=== PATIENT | female | born 1980 | race Caucasian/White ===

== ENCOUNTER 2016-09-15 05:45 | Emergency (ER) | payer MEDICARE ==
[~2016-09-15] VITALS: Ht 167.6 cm; Wt 127.3 kg
[~2016-09-15 05:45] MED LIST: BUSP10 PO; LORA-303 PO; VENL100T PO
[2016-09-15 05:48] VITALS: BP 145/98; PULSE 99; RESP 18; O2SAT 96
[2016-09-15] MEDS ORDERED: Methylpred Sodium Succ Inj 1,000 MG in Dextrose 5% 250 ML IV ONE (07:00)
--- NOTE | 2016-09-15 10:21 | DRSVH ---
PROCEDURE: MRI CERVICAL SPINE WITH AND WITHOUT CONTRAST ([id number]) INDICATIONS: Numbness, h.o MS TECHNIQUE: Noncontrast sagittal T1 spin echo and T2 fast spin echo, sagittal STIR, sagittal PD fast spin echo, f oraminal oblique sagittal T2 fast spin echo, axial gradient echo or T2 fast spin echo through the cer vical spine. After the administration of contrast, sagittal and axial T1 spin echo with fat saturati on through the cervical spine. COMPARISON: None. FINDINGS: Image quality: Excellent. Alignment and curvature: There is mild kyphosis centered at C4 secondary to mild degenerative change including intervertebral disc space narrowing, endplate sclerosis, and mild anterior wedging. Marrow: Marrow demonstrates normal overall signal. Spinal cord: Visualized spinal cord is normal in size. A focal white matter lesion is present at the C2-3 disc interspace which measures 0.7 cm (AP) by 1.0 cm (CC) by 0.5 cm (LAT). No suspicious intram edullary enhancement. No cerebellar tonsillar herniation. Paraspinous soft tissues: No paravertebral masses or suspicious enhancement. C2-C3: Mild disc desiccation and height loss. Broad-based disc bulge. Mild effacement of the anterior CSF space. Mild canal stenosis. No neural foraminal stenosis. C3-C4: Mild disc desiccation and height loss. Broad-based disc bulge. Mild effacement of the anterior CSF space and mild flattening of the anterior aspect of the cord. No cord signal abnormality seconda ry to cord flattening. Mild canal stenosis. No foraminal stenosis. C4-C5: Mild disc desiccation and height loss. Broad-based disc bulge. Effacement of the anterior CSF space. Mild canal stenosis. Mild left neuroforaminal stenosis. No right neuroforaminal narrowing. C5-C6: Mild disc desiccation and height loss. Broad-based disc bulge. No canal stenosis. No foraminal stenosis. C6-C7: Mild disc desiccation and height loss. Broad-based disc bulge. No canal stenosis. No foraminal stenosis. C7-T1: Normal appearance. IMPRESSION: 1. Disc desiccation and height loss throughout the lumbar spine, mild in degree. 2. Mild canal stenosis at C2-3 C3-4, and C4-5 with mild flattening of the anterior aspect of the cord at C3-4. No associated cord signal abnormality. 3. Focal white matter lesion within the cord at C2-3 suspicious for a demyelinating plaque. There is no associated enhancement to suggest active demyelination. No other intramedullary lesions or enhance ment. Dictated by: Angie Mar M.D. on 09/15/2016 at 10:06 Approved by: Angie Mar M.D. on 09/15/2016 at 10:20
--- NOTE | 2016-09-15 10:42 | DRSVH ---
PROCEDURE: MRI MULTIPLE SCLEROSIS BRAIN WITH AND WITHOUT CONTRAST ([id number]) INDICATIONS: Numbness, h.o MS TECHNIQUE: Noncontrast sagittal and axial FLAIR, axial and coronal T2 fast spin echo, axial VIBE, axial gradient echo, axial diffusion and ADC through the brain. After the administration of contrast, axial and co vaishali VIBE with fat saturation through the brain. COMPARISON: None. FINDINGS: Image quality: Excellent. CSF spaces: Ventricles are normal in size and shape. Basal cisterns are patent. No extra-axial flu id collections. Brain: No intracranial bleeds or mass effects. Morel-white matter interface appears intact. A 6 mm d iameter white matter lesion is present adjacent to the posterior horn of the left lateral ventricle ( series 4, image 16). There is no associated enhancement. No other white matter lesions. No abnormal i ntracranial enhancement. Diffusion weighted images show no acute ischemic insults. Brainstem appear s normal. Normal intravascular flow voids are present. Skull and face: Calvarial marrow signal is normal. Orbits appear normal. Sinuses: Sinuses and mastoids are clear. IMPRESSION: 1. Solitary left periventricular white matter lesion suspicious for a demyelinating plaque. There is no associated enhancement to suggest active demyelination. 2. No other white matter lesions or other acute intracranial findings. Dictated by: Angie Mar M.D. on 09/15/2016 at 10:34 Approved by: Angie Mar M.D. on 09/15/2016 at 10:41
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
[2016-09-15] MEDS ORDERED: PRE20 PO (11:28)
== END 2016-09-15 12:03 | disposition home or self-care (01) ==
LOC: SED 05:45
DX: G37.9 Demyelinating disease of central nervous system, unspecified (principal); F17.200 Nicotine dependence, unspecified, uncomplicated; Z88.5 Allergy status to narcotic agent; Z88.8 Allergy status to other drugs, medicaments and biological substances; Z91.013 Allergy to seafood; Z91.040 Latex allergy status
CPT/HCPCS: 70553; 72156; 96365; 99284; A9585; J2930

== ENCOUNTER 2016-09-17 20:25 | Inpatient (IN) | payer MEDICARE ==
[~2016-09-17] VITALS: Ht 167.6 cm; Wt 124.4 kg
[~2016-09-17 20:25] MED LIST changes: +PRE20 PO
[2016-09-17 20:36] VITALS: BP 111/75; PULSE 81; RESP 20; O2SAT 95
[2016-09-17] MEDS ORDERED: Polyethylene Glycol (PEG) 17 Gm Powder PO PRN (21:15)
[2016-09-17] MEDS ORDERED: MethylprednisoLONE Sodium Succinate 62.5 mg/mL 2 mL Inj IVPUSH SCH ×2 (21:15→21:25)
[2016-09-17] MEDS ORDERED: Ondansetron 2 mg/mL 2 mL Inj IVPUSH PRN (21:15)
[2016-09-17] MEDS ORDERED: Alum-Mag Hydrox-Simeth 30 mL Suspension PO PRN ×2 (21:15→21:25)
[2016-09-17] MEDS ORDERED: METHYLPREDNISOLONE IV ONE ×2 (21:25)
[2016-09-17] MEDS ORDERED: SODIUM CHLORIDE IV ONE ×2 (21:25)
[2016-09-17 21:38] LABS: Mean Corpuscular Hemoglobin 29.9 pg (27.0-35.0); Mean Corpuscular Volume 88.7 fL (81-100)
--- NOTE | 2016-09-17 21:58 | PCM.HPMED ---
Subjective Date of Service Sep 17, 2016 Primary Provider: Admitting Physician: Salazar Sanchez MD Primary Care Physician: Bill Leach MD Attending Physician: Salazar Sanchez MD Chief Complaint: weakness, numbness History of Present Illness: 36yo lady with hx of MS. 3 day hx of progressively worsening LE weakness, upper and lower extremity tingling. having difficulty walking today. sent by outside physician to hosp direct admit for iv steroids. no fevers chills. denies recent illness. no chest pain, dypsnea, difficulty breathing. dx'd with MS 04/2016. had R sided symptoms which resolved. has not had to take steroids before. has not been on any immunomodulating medications. awaiting neurology outpt. came to er earlier this week when the symptoms first started and had mri brain, spine which showed a new spinal lesion Review of Systems: Positive Review of Symptoms mentioned and elaborated on in HPI. Head: Denies H/A, trauma, loss of consciousness. Eyes: Denies visual loss, diplopia. Ears: Denies: deafness, tinnitis, discharge, pain Nose: Denies discharge, obstruction, epistaxis Mouth: Denies sores, gingival bleeding, jaw pain Neck: Denies stiffness, issues swallowing. Respiratory: Denies dyspnea, cough, sputum. Cardiovascular:Denies CP, palpitations, orthopnea, peripheral edema Gastrointestinal: Denies melena, abd pain, n/v/d Genitourinary: Denies dysuria, discharge. Skin: Denies: lesions, rashes, pruritus. Musculoskeletal: Denies joint pain, swelling or increased warmth. Neuro: see hpi Psyc: Currently denies feelings of anxiety, depression. Allergies Coded Allergies: Adhesives (Verified Allergy, Severe, reddness, bruising and whelting, ) Shellfish (Verified Allergy, Severe, giant hives, 09/15/16) with shrimp latex (Verified Allergy, Severe, 09/15/16) gluten (Verified Allergy, Intermediate, Rash, joint pain, higher inflammation, 09/17/16) codeine (Verified Allergy, Unknown, rash, 09/15/16) Home Medications see emr PMH see hpi Surgical History L eye, L elbow, gallbladder Family History cousin with ms Social History Hx Alcohol Use: Yes (rare) Hx Substance Use: Yes (thc) Smoking Status: Current Every Day Smoker Exam Vital Signs Vital Sign - Last Date Time Temp Pulse Resp B/P Pulse Ox O2 Delivery O2 Flow Rate FiO2 09/17/16 20:36 36.8 81 20 111/75 95 Room Air Exam General: No acute distress. Awake, alert. Head: Normocephalic, atraumatic. Eyes: White sclera. Conjunctiva non-injected. Mouth & Throat: No Bleeding. No erythema, lesions, exudates visualized. Neck: No tender adenopathy. Trachea midline. Respiratory: Clear to auscultation bilaterally. Symmetric chest expansion. Regular work of breathing without use of accessory muscles. Cardiovascular: S1, S2. Regular rate and rhythm without murmurs, rubs or gallops. Pulses 2+ equal bilaterally. Abdomen: Normal bowel sounds x4 quadrants. Soft, non-tender, non-distended. Extremities: Intact. no joint effusions. no lower extremity tenderness, swelling , erythema or increased warmth. Skin: Intact, no lesions, no rash. Neurologic: Awake, alert, oriented x3. upper and le reports dec sensation to light touch. 4/5 strength b/l Upper and Lower extrem. otherwise no focal deficits. Psychiatric: Appropriate mood and affect. Cooperative. Lab and Diagnostics Result Diagram: 09/17/160 X-Rays, CTs and MRIs Patient Name: PAUL PENG MR#: [id number] Location: [facility] [place] Ordering Phys: Cecilio Caceres DO Date of Service: 09/15/16 0656 PROCEDURE: MRI CERVICAL SPINE WITH AND WITHOUT CONTRAST ([id number]) INDICATIONS: Numbness, h.o MS TECHNIQUE: Noncontrast sagittal T1 spin echo and T2 fast spin echo, sagittal STIR, sagittal PD fast spin echo, foraminal oblique sagittal T2 fast spin echo, axial gradient echo or T2 fast spin echo through the cervical spine. After the administration of contrast, sagittal and axial T1 spin echo with fat saturation through the cervical spine. COMPARISON: None. FINDINGS: Image quality: Excellent. Alignment and curvature: There is mild kyphosis centered at C4 secondary to mild degenerative change including intervertebral disc space narrowing, endplate sclerosis, and mild anterior wedging. Marrow: Marrow demonstrates normal overall signal. Spinal cord: Visualized spinal cord is normal in size. A focal white matter lesion is present at the C2-3 disc interspace which measures 0.7 cm (AP) by 1.0 cm (CC) by 0.5 cm (LAT). No suspicious intramedullary enhancement. No cerebellar tonsillar herniation. Paraspinous soft tissues: No paravertebral masses or suspicious enhancement. C2-C3: Mild disc desiccation and height loss. Broad-based disc bulge. Mild effacement of the anterior CSF space. Mild canal stenosis. No neural foraminal stenosis. C3-C4: Mild disc desiccation and height loss. Broad-based disc bulge. Mild effacement of the anterior CSF space and mild flattening of the anterior aspect of the cord. No cord signal abnormality secondary to cord flattening. Mild canal stenosis. No foraminal stenosis. C4-C5: Mild disc desiccation and height loss. Broad-based disc bulge. Effacement of the anterior CSF space. Mild canal stenosis. Mild left neuroforaminal stenosis. No right neuroforaminal narrowing. C5-C6: Mild disc desiccation and height loss. Broad-based disc bulge. No canal stenosis. No foraminal stenosis. C6-C7: Mild disc desiccation and height loss. Broad-based disc bulge. No canal stenosis. No foraminal stenosis. C7-T1: Normal appearance. IMPRESSION: 1. Disc desiccation and height loss throughout the lumbar spine, mild in degree. 2. Mild canal stenosis at C2-3 C3-4, and C4-5 with mild flattening of the anterior aspect of the cord at C3-4. No associated cord signal abnormality. 3. Focal white matter lesion within the cord at C2-3 suspicious for a demyelinating plaque. There is no associated enhancement to suggest active demyelination. No other intramedullary lesions or enhancement. Dictated by: Angie Mar M.D. on 09/15/2016 at 10:06 Approved by: Angie Mar M.D. on 09/15/2016 at 10:20 Patient Name: PAUL PENG MR#: [id number] Location: [facility] [place] Ordering Phys: Cecilio Caceres DO Date of Service: 09/15/16 0656 PROCEDURE: MRI MULTIPLE SCLEROSIS BRAIN WITH AND WITHOUT CONTRAST ([id number]) INDICATIONS: Numbness, h.o MS TECHNIQUE: Noncontrast sagittal and axial FLAIR, axial and coronal T2 fast spin echo, axial VIBE, axial gradient echo, axial diffusion and ADC through the brain. After the administration of contrast, axial and coronal VIBE with fat saturation through the brain. COMPARISON: None. FINDINGS: Image quality: Excellent. CSF spaces: Ventricles are normal in size and shape. Basal cisterns are patent. No extra-axial fluid collections. Brain: No intracranial bleeds or mass effects. Morel-white matter interface appears intact. A 6 mm diameter white matter lesion is present adjacent to the posterior horn of the left lateral ventricle (series 4, image 16). There is no associated enhancement. No other white matter lesions. No abnormal intracranial enhancement. Diffusion weighted images show no acute ischemic insults. Brainstem appears normal. Normal intravascular flow voids are present. Skull and face: Calvarial marrow signal is normal. Orbits appear normal. Sinuses: Sinuses and mastoids are clear. IMPRESSION: 1. Solitary left periventricular white matter lesion suspicious for a demyelinating plaque. There is no associated enhancement to suggest active demyelination. 2. No other white matter lesions or other acute intracranial findings. Dictated by: Angie Mar M.D. on 09/15/2016 at 10:34 Approved by: Angie Mar M.D. on 09/15/2016 at 10:41 Assessment & Plan -- acute ms exacerbation trial of iv steroids, work with physical therapy if able. if no improvement neurology evaluation. had recent mri as mentioned above. further w/u, rx as clinically indicated -- f/e/n:po diet -- dvt prophylaxis: lovenox Dipso: Admit to inpt tele with expected length of stay > 2 midnights. Salazar Sanchez MD Sep 17, 2016 21:58
[2016-09-18 02:02] VITALS: BP 108/70; PULSE 85; RESP 20; O2SAT 95
[2016-09-18] MEDS ORDERED: IBUP400T22 PO (02:32)
--- NOTE | 2016-09-18 02:44 | NUR ---
Admit pt arrived to [facility] [place] room 1020 at 2030. A&Ox3, BORREGO. pt was able to walk from the wheelchair to the bed without assistance. walks slowly but steadily. pt denies pain but states she has numbness and tingling from her chest down to her toes. admit and med rec complete. she says the only home meds she takes are the occasional ibuprofen for pain and medical marijuana which she uses daily. pt received 1gm of solumedrol IV. pt oriented to room, call light and bed controls. care continues.
[2016-09-18 05:56] LABS: Mean Corpuscular Hemoglobin 30.1 pg (27.0-35.0); Mean Corpuscular Volume 90.2 fL (81-100)
[2016-09-18 06:14] LABS: Magnesium 2.2 mg/dL (1.6-2.6)
[2016-09-18 06:20] VITALS: PULSE 75
[2016-09-18 06:23] VITALS: BP 96/59; PULSE 63; RESP 20; O2SAT 96
[2016-09-18 08:00] VITALS: PULSE 71
[2016-09-18] MEDS ORDERED: Pantoprazole 40 mg ER24 Tablet PO SCH (09:00)
[2016-09-18 10:35] VITALS: BP 134/74; PULSE 89; RESP 18; O2SAT 97
--- NOTE | 2016-09-18 10:37 | PCM.PNMED ---
Subjective Date of Service Sep 18, 2016 Subjective patient felt similar, still has tingling and numbness below her chest level, denied motor weakness but having trouble with coordination movement. stated that at [facility] sent her to hospital, tolerated solu-medrol iv 500mg well last night, denied epigastric pain, nausea, vomiting, denied painful eye movement, dysuria Exam Vital Signs Vital Sign - Last Date Time Temp Pulse Resp B/P Pulse Ox O2 Delivery O2 Flow Rate FiO2 09/18/16 06:23 36.8 63 20 96/59 96 Room Air Intake and Output 09/17/16 09/17/16 09/18/16 Cumulative From/Thru 15:00 23:00 07:00 09/17/16 20:39 - 09/18/16 06:33 Intake Total 100 ml 100 ml Output Total 150 ml 150 ml Balance -50 ml -50 ml Intake Oral 100 ml 100 ml Output Urine Total 150 ml 150 ml Exam NAD, comfortably laying down on the bed no JVD, MMM, no LAD RRR, nl s1, s2 no mrg CTAB, no w,c S,ND,NT,normoactive BS+ warm, no edema, pulses 2/2 sensory intact to dull throughout neuro: CN2-12 intact grossly IVs and Medications Medications Reviewed: Medications were reviewed in detail Lab and Diagnostics Result Diagram: 09/18/[id number] X-Rays, CTs and MRIs Patient Name: PAUL PENG MR#: [id number] Location: [facility] [place] Ordering Phys: Cecilio Caceres DO Date of Service: 09/15/16 0656 PROCEDURE: MRI CERVICAL SPINE WITH AND WITHOUT CONTRAST ([id number]) INDICATIONS: Numbness, h.o MS TECHNIQUE: Noncontrast sagittal T1 spin echo and T2 fast spin echo, sagittal STIR, sagittal PD fast spin echo, foraminal oblique sagittal T2 fast spin echo, axial gradient echo or T2 fast spin echo through the cervical spine. After the administration of contrast, sagittal and axial T1 spin echo with fat saturation through the cervical spine. COMPARISON: None. FINDINGS: Image quality: Excellent. Alignment and curvature: There is mild kyphosis centered at C4 secondary to mild degenerative change including intervertebral disc space narrowing, endplate sclerosis, and mild anterior wedging. Marrow: Marrow demonstrates normal overall signal. Spinal cord: Visualized spinal cord is normal in size. A focal white matter lesion is present at the C2-3 disc interspace which measures 0.7 cm (AP) by 1.0 cm (CC) by 0.5 cm (LAT). No suspicious intramedullary enhancement. No cerebellar tonsillar herniation. Paraspinous soft tissues: No paravertebral masses or suspicious enhancement. C2-C3: Mild disc desiccation and height loss. Broad-based disc bulge. Mild effacement of the anterior CSF space. Mild canal stenosis. No neural foraminal stenosis. C3-C4: Mild disc desiccation and height loss. Broad-based disc bulge. Mild effacement of the anterior CSF space and mild flattening of the anterior aspect of the cord. No cord signal abnormality secondary to cord flattening. Mild canal stenosis. No foraminal stenosis. C4-C5: Mild disc desiccation and height loss. Broad-based disc bulge. Effacement of the anterior CSF space. Mild canal stenosis. Mild left neuroforaminal stenosis. No right neuroforaminal narrowing. C5-C6: Mild disc desiccation and height loss. Broad-based disc bulge. No canal stenosis. No foraminal stenosis. C6-C7: Mild disc desiccation and height loss. Broad-based disc bulge. No canal stenosis. No foraminal stenosis. C7-T1: Normal appearance. IMPRESSION: 1. Disc desiccation and height loss throughout the lumbar spine, mild in degree. 2. Mild canal stenosis at C2-3 C3-4, and C4-5 with mild flattening of the anterior aspect of the cord at C3-4. No associated cord signal abnormality. 3. Focal white matter lesion within the cord at C2-3 suspicious for a demyelinating plaque. There is no associated enhancement to suggest active demyelination. No other intramedullary lesions or enhancement. Dictated by: Angie Mar M.D. on 09/15/2016 at 10:06 Approved by: Angie Mar M.D. on 09/15/2016 at 10:20 Patient Name: PAUL PENG MR#: [id number] Location: [facility] [place] Ordering Phys: Cecilio Caceres DO Date of Service: 09/15/16 0656 PROCEDURE: MRI MULTIPLE SCLEROSIS BRAIN WITH AND WITHOUT CONTRAST ([id number]) INDICATIONS: Numbness, h.o MS TECHNIQUE: Noncontrast sagittal and axial FLAIR, axial and coronal T2 fast spin echo, axial VIBE, axial gradient echo, axial diffusion and ADC through the brain. After the administration of contrast, axial and coronal VIBE with fat saturation through the brain. COMPARISON: None. FINDINGS: Image quality: Excellent. CSF spaces: Ventricles are normal in size and shape. Basal cisterns are patent. No extra-axial fluid collections. Brain: No intracranial bleeds or mass effects. Morel-white matter interface appears intact. A 6 mm diameter white matter lesion is present adjacent to the posterior horn of the left lateral ventricle (series 4, image 16). There is no associated enhancement. No other white matter lesions. No abnormal intracranial enhancement. Diffusion weighted images show no acute ischemic insults. Brainstem appears normal. Normal intravascular flow voids are present. Skull and face: Calvarial marrow signal is normal. Orbits appear normal. Sinuses: Sinuses and mastoids are clear. IMPRESSION: 1. Solitary left periventricular white matter lesion suspicious for a demyelinating plaque. There is no associated enhancement to suggest active demyelination. 2. No other white matter lesions or other acute intracranial findings. Dictated by: Angie Mar M.D. on 09/15/2016 at 10:34 Approved by: Angie Mar M.D. on 09/15/2016 at 10:41 Assessment & Plan 36-year-old female no past medical history, presumed diagnosis with MS in last April but didn't meet the criteria for MS initially presented to ED with whole body tingling and numbness, MRI findings suggestive of MS, no acute changes, seen by new Neurologist at [facility], sent to hospital for steroid iv tx. acute, active whole body tingling and numbness, POA, presumed MS flare, no motor weakness but subtle problems with ambulation, coordinating movement per pt, MRI 4/4showed Solitary left periventricular white matter lesion suspicious for a demyelinating plaque. no acute signs of active demyelination. -continue trial of iv steroids, 1g q24h for 3-5days, monitor symptom improvement , work with physical therapy if able. -Outpatient follow up with upon d/c dvt ppx: LMWH diet: regular dispo: likely 3-5more days VTE Mechanical Devices: Intermittant Pneumatic CD Time spent 35min Aissatou Kidd MD Sep 18, 2016 10:23
[2016-09-18] MEDS ORDERED: DEXTROSE 5% IV SCH (11:05)
[2016-09-18] MEDS ORDERED: METHYLPRED SODIUM SUCC IV SCH (11:05)
--- NOTE | 2016-09-18 13:10 | NUR ---
Social Work: Initial Assessment Data & Assessment: See Initial Assessment. EMR reviewed. Hospital Cleaner met with patient and patient's family to complete initial assessment, SW role reviewed, and discharge planning discussed. Patient JATIN is her Abdifatah Izquierdo [phone]. Patient does not have Advance Directive/DPOA and declined information. Patient confirmed that her PCP is Dr. Bill Leach. Patient has Medicare insurance. Patient has no LTC or VA benefits. Patient does not have a re-admit score. Patient lives at home with family in a 2 story home with three steps to enter and twelve steps on the inside. Patient reported that everything she needs is on the first level and she does not have to go upstairs in her home. Patient is independent at baseline. Patient has no HH or SNF history and no DME.Pt's family to provide transport home at discharge. SW provided phone number and plan on white board in room. SW will continue to follow. Plan: Anticipated discharge home via POV when medically ready. No discharge needs identified at this time. SW to continue to follow if any needs arise. Armando Nava LMSW, LUANN Addendum: 09/18/16 at 1320 by ARMANDO CHENG Amended: Links added.
[2016-09-18 14:47] VITALS: BP 149/78; PULSE 86; RESP 16; O2SAT 95
--- NOTE | 2016-09-18 15:09 | NUR ---
Behavior / Emotions RESEARCH CONSULTANT told me pt wanted to go outside and stated she was told it was okay. RESEARCH CONSULTANT informed pt this was not permitted while she is here as an inpatient. I spoke with pt and informed her that we cannot allow her to leave the [facility] unit, and that she cannot go outside to smoke. Offered to ask physician for an order for a nicotine patch. Pt became upset and tearful and told me to leave her alone. I apologized for the situation, but again firmly advised pt that she cannot go outside. Doing so would mean she would discharge as AMA. Spouse was at the bedside during this conversation. Care continues.
--- NOTE | 2016-09-18 16:24 | NUR ---
AMA discharge Pt decided to leave AMA. Pt upset about not getting enough sleep, the poor quality of the food, and not being allowed to go outside and smoke. Pt did not feel her treatment with steroids was helping. Pt very emotional and crying. Advised pt that her insurance may not cover her expenses here since she was leaving AMA. Pt signed AMA form. Hospitalist notified. (Dr Kidd) PIV was removed intact and all personal possessions sent with pt.
[2016-09-18] MEDS ORDERED: Methylpred Sodium Succ Inj 1,000 MG in Dextrose 5% 250 ML IV SCH (21:00)
--- NOTE | 2016-09-24 08:04 | PCM.DC.MED ---
Discharge Summary Date of Service Sep 18, 2016 Dates of Hospitalization Date of Hospital Admission Sep 17, 2016 at 20:25 Date of Discharge: Sep 18, 2016 Providers: Admitting Physician: Salazar Sanchez MD Primary Care Physician: Bill Leach MD Attending Physician: Salazar Sanchez MD Diagnosis at Time of Discharge Diagnosis at Time of Discharge probable MS exacerbation Consultations Neurology outside Procedures XRay, CTs & MRIs Patient Name: PAUL PENG MR#: [id number] [place] [facility] [place] Phys: Cecilio Caceres DO Date of Service: 09/15/16 0656 PROCEDURE: MRI CERVICAL SPINE WITH AND WITHOUT CONTRAST ([id number]) INDICATIONS: Numbness, h.o MS TECHNIQUE: Noncontrast sagittal T1 spin echo and T2 fast spin echo, sagittal STIR, sagittal PD fast spin echo, foraminal oblique sagittal T2 fast spin echo, axial gradient echo or T2 fast spin echo through the cervical spine. After the administration of contrast, sagittal and axial T1 spin echo with fat saturation through the cervical spine. COMPARISON: None. FINDINGS: Image quality: Excellent. Alignment and curvature: There is mild kyphosis centered at C4 secondary to mild degenerative change including intervertebral disc space narrowing, endplate sclerosis, and mild anterior wedging. Marrow: Marrow demonstrates normal overall signal. Spinal cord: Visualized spinal cord is normal in size. A focal white matter lesion is present at the C2-3 disc interspace which measures 0.7 cm (AP) by 1.0 cm (CC) by 0.5 cm (LAT). No suspicious intramedullary enhancement. No cerebellar tonsillar herniation. Paraspinous soft tissues: No paravertebral masses or suspicious enhancement. C2-C3: Mild disc desiccation and height loss. Broad-based disc bulge. Mild effacement of the anterior CSF space. Mild canal stenosis. No neural foraminal stenosis. C3-C4: Mild disc desiccation and height loss. Broad-based disc bulge. Mild effacement of the anterior CSF space and mild flattening of the anterior aspect of the cord. No cord signal abnormality secondary to cord flattening. Mild canal stenosis. No foraminal stenosis. C4-C5: Mild disc desiccation and height loss. Broad-based disc bulge. Effacement of the anterior CSF space. Mild canal stenosis. Mild left neuroforaminal stenosis. No right neuroforaminal narrowing. C5-C6: Mild disc desiccation and height loss. Broad-based disc bulge. No canal stenosis. No foraminal stenosis. C6-C7: Mild disc desiccation and height loss. Broad-based disc bulge. No canal stenosis. No foraminal stenosis. C7-T1: Normal appearance. IMPRESSION: 1. Disc desiccation and height loss throughout the lumbar spine, mild in degree. 2. Mild canal stenosis at C2-3 C3-4, and C4-5 with mild flattening of the anterior aspect of the cord at C3-4. No associated cord signal abnormality. 3. Focal white matter lesion within the cord at C2-3 suspicious for a demyelinating plaque. There is no associated enhancement to suggest active demyelination. No other intramedullary lesions or enhancement. Dictated by: Angie Mar M.D. on 09/15/2016 at 10:06 Approved by: Angie Mar M.D. on 09/15/2016 at 10:20 Patient Name: PAUL PENG MR#: [id number] [place] [facility] [place] Phys: Cecilio Caceres DO Date of Service: 09/15/16 0656 PROCEDURE: MRI MULTIPLE SCLEROSIS BRAIN WITH AND WITHOUT CONTRAST ([id number]) INDICATIONS: Numbness, h.o MS TECHNIQUE: Noncontrast sagittal and axial FLAIR, axial and coronal T2 fast spin echo, axial VIBE, axial gradient echo, axial diffusion and ADC through the brain. After the administration of contrast, axial and coronal VIBE with fat saturation through the brain. COMPARISON: None. FINDINGS: Image quality: Excellent. CSF spaces: Ventricles are normal in size and shape. Basal cisterns are patent. No extra-axial fluid collections. Brain: No intracranial bleeds or mass effects. Morel-white matter interface appears intact. A 6 mm diameter white matter lesion is present adjacent to the posterior horn of the left lateral ventricle (series 4, image 16). There is no associated enhancement. No other white matter lesions. No abnormal intracranial enhancement. Diffusion weighted images show no acute ischemic insults. Brainstem appears normal. Normal intravascular flow voids are present. Skull and face: Calvarial marrow signal is normal. Orbits appear normal. Sinuses: Sinuses and mastoids are clear. IMPRESSION: 1. Solitary left periventricular white matter lesion suspicious for a demyelinating plaque. There is no associated enhancement to suggest active demyelination. 2. No other white matter lesions or other acute intracranial findings. Dictated by: Angie Mar M.D. on 09/15/2016 at 10:34 Approved by: Angie Mar M.D. on 09/15/2016 at 10:41 Brief History HPI by on 09/17 36yo lady with hx of MS. 3 day hx of progressively worsening LE weakness, upper and lower extremity tingling. having difficulty walking today. sent by outside physician to hosp direct admit for iv steroids. no fevers chills. denies recent illness. no chest pain, dypsnea, difficulty breathing. dx'd with MS 04/2016. had R sided symptoms which resolved. has not had to take steroids before. has not been on any immunomodulating medications. awaiting neurology outpt. came to er earlier this week when the symptoms first started and had mri brain, spine which showed a new spinal lesion Hospital Course 36-year-old female no past medical history, presumed diagnosis with MS in last April but didn't meet the criteria for MS initially presented to ED with whole body tingling and numbness, MRI findings suggestive of MS, no acute changes, seen by new Neurologist at [facility], sent to hospital for steroid iv tx. whole body tingling and numbness, this was presumed MS flare, no motor weakness but subtle problems with ambulation, coordinating movement per pt, MRI 09/15 howed Solitary left periventricular white matter lesion suspicious for a demyelinating plaque. no acute signs of active demyelination. Primary neuro was reached agreed that this still could be MS flare although there was no acute enhancement. Trial of high dose steroid recommended. patient was started on 500mg Solu-medrol iv, continued on the day2, then left against medical advice before finishing the course due to subjective symptom improvement. Exam Vital Signs (Last) Date Time Temp Pulse Resp B/P Pulse Ox O2 Delivery O2 Flow Rate FiO2 09/18/16 14:47 36.7 86 16 149/78 95 Room Air Exam Patient was AMAed Test 09/17/16 21:30 09/18/16 05:45 Total Bilirubin 0.2mg/dL (0.0-1.2) Aspartate Amino Transf (AST/SGOT) 13U/L (0-50) Alanine Aminotransferase (ALT/SGPT) 20U/L (0-32) Alkaline Phosphatase 47U/L (25-150) Total Protein 6.6g/dL (6.4-8.4) Albumin 3.7g/dL (3.4-5.0) White Blood Count 6.7th/mm3 (3.8-10.1) Red Blood Count 4.68mil/mm3 (3.90-5.20) Hemoglobin 14.1g/dL (12.0-15.6) Hematocrit 42.2% (35.0-46.0) Mean Corpuscular Volume 90.2fL (81-100) Mean Corpuscular Hemoglobin 30.1pg (27.0-35.0) Mean Corpuscular Hemoglobin Concent 33.4% (32.0-37.0) Red Cell Distribution Width 12.3% (12.3-15.4) Platelet Count 254bil/L (150-400) Sodium Level 137mEq/L (134-144) Potassium Level 4.8mEq/L (3.5-5.2) Chloride Level 103mEq/L (97-108) Carbon Dioxide Level 20mmol/L (18-29) Blood Urea Nitrogen 14mg/dL (6-20) Creatinine 0.76mg/dL (0.57-1.00) Estimat Glomerular Filtration Rate 124mL/min (>59) Glucose Level 167mg/dL (60-99) Calcium Level 9.1mg/dL (8.5-10.1) Magnesium Level 2.2mg/dL (1.6-2.6) Discharge Medications As needed Ibuprofen (Ibuprofen) 400 Mg Tablet 400 MG PO DAILY PRN PRN For Pain (Reported) Followup Plan Disposition: AMA Time spent 65min Aissatou Kidd MD Sep 24, 2016 08:04
== END 2016-09-18 16:12 | disposition left against medical advice (07) | DRG 60 ==
LOC: OSC 20:25
PROVIDERS: ADMIT Family Medicine; ATTEND Family Medicine
DX: G35 Multiple sclerosis (principal); F17.210 Nicotine dependence, cigarettes, uncomplicated